=== PATIENT | male | born 1955 | race Caucasian/White ===

== ENCOUNTER 2020-11-30 07:38 | Day surgery (SDC) | payer BC ==
[~2020-11-30 07:38] MED LIST: Lactated Ringers 1,000 ML IV SCH; Sodium Chloride 0.9% 10 ML SDV IV PRN; Sodium Chloride 0.9% 10 ML Syringe FLUSH PRN; Sodium Chloride 0.9% 2.5 ML Syringe FLUSH PRN
[2020-11-30] MEDS ORDERED: Albuterol 0.083% 2.5 MG/3 ML Neb Soln NEB PRN (07:43)
[2020-11-30] MEDS ORDERED: Ondansetron 4 MG/2 ML SDV IVPUSH PRN (07:43)
--- NOTE | 2020-11-30 08:39 | PCM.PREANE ---
Preanesthetic Assessment - Anesthesia/Transfusion/Family Hx Anesthesia History: Prior Anesthesia Without Reaction Family History of Anesthesia Reaction: No Transfusion History: No Prior Transfusion(s) - Review of Systems General: No Symptoms Pulmonary: No Symptoms Cardiovascular: No Symptoms Gastrointestinal: No Symptoms Neurological: Numbness, Tingling, Other (Charcot Tamera Tooth Disease) Other: Reports: None - Physical Assessment NPO Status Date: 11/30/20 NPO Status Time: 00:00 Vital Signs: Last Vital Signs Temp 97.5 F 11/30/20 07:53 Pulse 67 11/30/20 07:53 Resp 16 11/30/20 07:53 BP 115/69 11/30/20 07:53 Pulse Ox 98 11/30/20 07:53 Height: 5 ft 8 in Weight: 222 lb ASA Class: 2 Mental Status: Alert & Oriented x3 Airway Class: Mallampati = 2 Dentition: Reports: Normal Dentition ROM/Head Extension: Full Lungs: Clear to Auscultation, Normal Respiratory Effort Cardiovascular: Regular Rate, Regular Rhythm - Allergies Allergies/Adverse Reactions: Allergies Allergy/AdvReac Type Severity Reaction Status Date / Time No Known Allergies Allergy Verified 11/30/20 07:57 - Acknowledgements Anesthesia Type Planned: General Anesthesia Pt an Appropriate Candidate for the Planned Anesthesia: Yes Alternatives and Risks of Anesthesia Discussed w Pt/Guardian: Yes Pt/Guardian Understands and Agrees with Anesthesia Plan: Yes PreAnesthesia Questionnaire HEENT History: Reports: Impaired Vision Other HEENT History: wears reading glasses Cardiovascular History: Reports: None Respiratory History: Reports: None Gastrointestinal History: Reports: Colon Polyp Genitourinary History: Reports: Renal Calculus Musculoskeletal History: Reports: Other (See Below) Other Musculoskeletal History: 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 Neurological History: Reports: Neuropathy, Peripheral Other Neuro History: 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, takes lyrica Psychiatric History: Reports: None Endocrine/Metabolic History: Reports: Obesity/BMI 30+ Hematologic History: Reports: None Immunologic History: Reports: None Oncologic (Cancer) History: Reports: None Dermatologic History: Reports: None - Past Surgical History Head Surgeries/Procedures: Reports: None HEENT Surgical History: Reports: None Cardiovascular Surgical History: Reports: None Respiratory Surgical History: Reports: None GI Surgical History: Reports: Colonoscopy Male Surgical History: Reports: Lithotripsy (ESWL), Vasectomy Endocrine Surgical History: Reports: None Neurological Surgical History: Reports: None Musculoskeletal Surgical History: Reports: None Oncologic Surgical History: Reports: None Dermatological Surgical History: Reports: Other (See Below) - SUBSTANCE USE Tobacco Use Status *Q: Never Tobacco User - HOME MEDS Home Medications: Home Meds Pregabalin [Lyrica] 1 cap PO BID 09/29/15 [History] Glucosam/Chond/Collagen/Hyalur [Glucosamine Chondroitin] 1 tab PO DAILY 11/24/20 [History] Ibuprofen 2 tab PO ASDIRECTED PRN 11/24/20 [History] - CURRENT (IN HOUSE) MEDS Current Meds: Current Medications Albuterol (Albuterol 0.083% 2.5 Mg/3 Ml Neb Soln) 2.5 mg NEB ONETIME PRN PRN Reason: Wheezing Lactated Ringer's (Ringers, Lactated) 1,000 mls @ 125 mls/hr IV ASDIRECTED [facility] Last Admin: 11/30/20 07:56 Dose: 125 mls/hr Documented by: Ondansetron HCl (Ondansetron 4 Mg/2 Ml Sdv) 4 mg IVPUSH ONETIME PRN PRN Reason: Nausea/Vomiting Sodium Chloride (Sodium Chloride 0.9% 10 Ml Syringe) 10 ml FLUSH ASDIRECTED PRN PRN Reason: Keep Vein Open Sodium Chloride (Sodium Chloride 0.9% 2.5 Ml Syringe) 2.5 ml FLUSH ASDIRECTED PRN PRN Reason: Keep Vein Open Sodium Chloride (Sodium Chloride 0.9% 10 Ml Syringe) 10 ml FLUSH ASDIRECTED PRN PRN Reason: Keep Vein Open Sodium Chloride (Sodium Chloride 0.9% 2.5 Ml Syringe) 2.5 ml FLUSH ASDIRECTED PRN PRN Reason: Keep Vein Open Sodium Chloride (Sodium Chloride 0.9% 10 Ml Sdv) 10 ml IV ASDIRECTED PRN PRN Reason: IV Use
[2020-11-30] MEDS ORDERED: Ondansetron 4 MG/2 ML SDV ONE (08:50)
[2020-11-30] MEDS ORDERED: fentaNYL 100 MCG/2 ML SDV ONE (08:50)
[2020-11-30] MEDS ORDERED: Lidocaine 2% 5 ML SDV ONE (08:50)
[2020-11-30] MEDS ORDERED: propofoL 100 ML ONE (09:20)
--- NOTE | 2020-11-30 11:47 | PCM.POSTAN ---
POST ANESTHESIA ASSESSMENT - MENTAL STATUS Mental Status: Alert, Oriented - VITAL SIGNS Vital Signs: Last Vital Signs Temp 97.5 F 11/30/20 07:53 Pulse 60 11/30/20 11:25 Resp 12 11/30/20 11:25 BP 95/53 L 11/30/20 11:25 Pulse Ox 94 L 11/30/20 11:25 - RESPIRATORY Respiratory Status: Respiratory Rate WNL, Airway Patent, O2 Saturation Stable - CARDIOVASCULAR CV Status: Pulse Rate WNL, Blood Pressure Stable - GASTROINTESTINAL GI Status: No Symptoms - POST OP HYDRATION Hydration Status: Adequate & Stable
--- NOTE | 2020-11-30 11:47 | PCM48HPAN ---
Post Anesthesia Note - EVALUATION WITHIN 48HRS OF ANESTHETIC Vital Signs in Normal Range: Yes Patient Participated in Evaluation: Yes Respiratory Function Stable: Yes Airway Patent: Yes Cardiovascular Function Stable: Yes Hydration Status Stable: Yes Pain Control Satisfactory: Yes Nausea and Vomiting Control Satisfactory: Yes Mental Status Recovered: Yes Vital Signs: Last Vital Signs Temp 97.5 F 11/30/20 07:53 Pulse 60 11/30/20 11:25 Resp 12 11/30/20 11:25 BP 95/53 L 11/30/20 11:25 Pulse Ox 94 L 11/30/20 11:25
[2020-11-30 12:26] VITALS: BP 100/56; PULSE 64
--- NOTE | 2020-11-30 13:47 | PCM.OPNOTE ---
- General Post-Op/Procedure Note Date of Surgery/Procedure: 11/30/20 Operative Procedure(s): Screening colonoscopy Findings: ascending colon polyp, transverse colon polyp, sigmoid colon diverticulosis Pre Op Diagnosis: History of colon polyps Post-Op Diagnosis: Ascending colon polyp, transverse colon polyp, sigmoid colon diverticulosis [place]est[place] [facility] [place] Surgeon: Meli Snyder Condition: Good Free Text/Narrative:: Intake & Output 11/29/20 11/30/20 11/30/20 22:59 06:59 14:59 Intake Total 650 Balance 650
--- NOTE | 2020-12-01 20:43 | OR ---
SURGEON: MELI SNYDER MD DATE OF PROCEDURE: 11/30/2020 PREOPERATIVE DIAGNOSIS: History of colon polyps. POSTOPERATIVE DIAGNOSES: 1. Diverticulosis. 2. Ascending colon polyp. 3. Transverse colon polyp. PROCEDURE PERFORMED: Screening colonoscopy with polypectomy. PRIMARY SURGEON: Meli Snyder MD ANESTHESIA: MAC. INSTRUMENT USED: Olympus colonoscope. EXTENT OF THE EXAM: To the cecum. PREPARATION: Good. LIMITATIONS: None. INDICATIONS FOR EXAMINATION: The patient is a 65-year-old male who presents for repeat colonoscopy. He has a history of colon polyps. I explained to him the colonoscopy procedure, expected perioperative course, and the risks. He verbalized understanding and wishes to proceed. PROCEDURE IN DETAIL: The patient was brought in to the endoscopy suite and placed in a left lateral decubitus position. A time-out was completed verifying the patient's name, age, date of , allergies, and procedure to be performed. Monitored anesthesia care was induced and continuous oxygen was provided via nasal cannula throughout the procedure. After adequate sedation was achieved, a digital rectal exam was performed. This exam was within normal limits. A well-lubricated colonoscope was inserted in the rectum and advanced under direct visualization to the level of the cecum. The cecum was identified by both visual and anatomic landmarks. A photograph was taken of the cecal cap as well as the scope retroflexed within the cecum. The scope was then fully withdrawn while examining the color, texture, anatomy, and integrity of the mucosa from the cecum to the anal canal. The patient was found to have sessile polyps in the ascending colon and transverse colon. These were removed in piecemeal fashion using a cold biopsy forceps. The patient was noted to have diverticulosis throughout the sigmoid colon. The scope was brought into the rectum and retroflexed to allow visualization of the anal canal opening. This appeared normal and a photograph was taken. The scope was then straightened out and fully withdrawn. The cecum to anus time was 10 minutes. The patient tolerated the procedure well and was transferred to the PACU in stable condition. ENDOSCOPIC DIAGNOSES: 1. Diverticulosis. 2. Ascending colon polyp. 3. Transverse colon polyp. RECOMMENDATION: Follow up in clinic in two weeks. YULIYA / YONY /[id number]
== END 2020-11-30 12:02 | disposition home or self-care (01) ==
LOC: MW.SDS 07:38
PROVIDERS: ATTEND Surgery
DX: Z12.11 Encounter for screening for malignant neoplasm of colon (principal); D12.2 Benign neoplasm of ascending colon; D12.3 Benign neoplasm of transverse colon; K57.30 Diverticulosis of large intestine without perforation or abscess without bleeding; Z86.010 Personal history of colon polyps
CPT/HCPCS: 45380; 88305; J2405; J2704; J3010; J7120

== ENCOUNTER 2022-10-11 07:18 | Emergency (ER) | payer BC ==
[2022-10-11] MEDS ORDERED: Sodium Chloride 0.9% 2.5 ML Syringe FLUSH PRN (07:40)
[2022-10-11] MEDS ORDERED: Sodium Chloride 0.9% 10 ML Syringe FLUSH PRN (07:40)
[2022-10-11 08:19] LABS: CARBON DIOXIDE,CO2 24.6 mmol/L (21.0-32.0); POTASSIUM,K 3.8 mmol/L (3.5-5.1)
[2022-10-11 11:10] VITALS: BP 143/62; PULSE 54
== END 2022-10-11 11:10 | disposition home or self-care (01) ==
LOC: MW.ED 07:18
DX: R07.89 Other chest pain (principal); E66.9 Obesity, unspecified; Z68.32 Body mass index [BMI] 32.0-32.9, adult
CPT/HCPCS: 36415; 71045; 80053; 83690; 84484; 85025; 93005; 99285; J3490; 93010; 99284

== ENCOUNTER 2023-09-04 21:48 | Emergency (ER) | payer BC ==
[2023-09-04] MEDS: HYDROmorphone 1 MG/ML Syringe IVPUSH ONE (23:16)
[2023-09-05] MEDS: Morphine 4 MG/ML Syringe IVPUSH ONE (04:36)
[2023-09-05] MEDS: D5 1/2 NS w/ 20 mEq/L KCl 1,000 ML IV SCH (06:30)
[2023-09-05] MEDS: Dextrose 5%-0.45% NaCl 1,000 ML IV SCH (07:43)
[2023-09-05] MEDS: Morphine 4 MG/ML Syringe IVPUSH PRN (07:43)
[2023-09-05 07:45] LABS: APPEARANCE,URINE CLEAR; BILIRUBIN,URINE NEGATIVE (NEGATIVE); COLOR,URINE YELLOW; GLUCOSE,URINE NEGATIVE (NEGATIVE); KETONES,URINE NEGATIVE (NEGATIVE); LEUKOCYTE ESTERASE,URINE NEGATIVE (NEGATIVE); NITRITE,URINE NEGATIVE (NEGATIVE); OCCULT BLOOD,URINE SMALL (NEGATIVE); PROTEIN,URINE TRACE mg/dL (NEGATIVE); UROBILINOGEN,URINE 0.2 EU/dL (<2.0)
[2023-09-05 07:55] LABS: HEMATOCRIT 30.4 % (42.0-52.0); HEMOGLOBIN 11.1 g/dL (14.0-18.0); IMMATURE GRAN ABSOLUTE AUTO 0.03 K/uL (0.00-0.05); IMMATURE GRAN PERCENT AUTO 0.8 % (0.0-0.4); LYMPHOCYTES ABSOLUTE AUTO 0.35 K/uL (1.00-4.80); LYMPHOCYTES PERCENT AUTO 8.9 % (24.0-44.0); MEAN CORPUSCULAR HEMOGLOBIN 32.6 pg (28.0-32.0); MEAN CORPUSCULAR HGB CONC 36.5 g/dL (32.0-36.0); MEAN CORPUSCULAR VOLUME 89.4 fL (83.0-99.0); MEAN PLATELET VOLUME 11.3 fL (9.4-12.4); MONOCYTES ABSOLUTE AUTO 0.29 K/uL (0.00-0.80); MONOCYTES PERCENT AUTO 7.4 % (0.0-8.0); NEUTROPHILS ABSOLUTE AUTO 3.27 K/uL (1.80-7.70); NEUTROPHILS PERCENT AUTO 82.9 % (41.0-71.0); WHITE BLOOD CELL COUNT,WBC 3.94 K/uL (3.9-11.3)
[2023-09-05 07:58] LABS: BACTERIA,URINE FEW (NEGATIVE); CALCIUM OXALATE CRYSTALS,URINE RARE (NEGATIVE); EPITHELIAL CELLS,URINE RARE (NONE-FEW); MUCUS,URINE LIGHT (NONE-MOD); RBC,URINE 0-3 (0-2/HPF); WBC,URINE 0-1 (0-5/HPF)
[2023-09-05 08:10] LABS: INR 1.09 (0.86-1.11)
[2023-09-05 08:17] LABS: A/G RATIO 1.1 (0.9-1.6); BILIRUBIN TOTAL 0.5 mg/dL (0.2-1.0); CALCIUM 8.8 mg/dL (8.5-10.1); CARBON DIOXIDE,CO2 24.7 mmol/L (21.0-32.0); CREATININE 1.3 mg/dL (0.8-1.3); EST CRCL DRUG DOSING (CG) 56.65 mL/min; PLATELET COUNT,PLT 80 K/uL (150-400); POTASSIUM,K 3.7 mmol/L (3.5-5.1); PROTEIN TOTAL,TP 5.8 g/dL (6.4-8.2)
[2023-09-05 09:33] VITALS: BP 146/74; PULSE 82
== END 2023-09-05 10:30 ==
LOC: MW.ED 21:48
DX: S72.91XA Unspecified fracture of right femur, initial encounter for closed fracture (principal); C90.00 Multiple myeloma not having achieved remission; Z79.899 Other long term (current) drug therapy; Z75.8 Other problems related to medical facilities and other health care; X58.XXXA Exposure to other specified factors, initial encounter
CPT/HCPCS: 36415; 71045; 72192; 80053; 81001; 83735; 85025; 85610; 85730; 93005; 96361; 96365; 96375; 96376; 99285; J1170; J2270; J7042; 93010; J3480